=== PATIENT | female | born 1950 | race Caucasian/White ===

== ENCOUNTER 2020-09-25 07:26 | Outpatient (CLI) | payer MEDICARE, OTHER ==
--- NOTE | 2020-09-25 09:02 | MRI ---
MRI LUMBAR SPINE WITHOUT CONTRAST: INDICATION: Lumbar stenosis. Low back pain. COMPARISON: Comparison is made to MRI lumbar spine dated 12/30/2017. FINDINGS: Severe degenerative disk changes at all levels of the lumbar spine again noted and do not appear sign ificantly changed from 2018. Prominent osteophytes are seen from the lumbar vertebrae. There has been progressive of degenerative disk and end plate changes at L1-2 when compared to the pr ior study. The degenerative changes at L2-3, L3-4, L4-5, and L5-S1 appear stable. T12-L1: No significant disk bulge. Facet hypertrophy without central canal stenosis. L1-2: Significant increase in the degenerative disk and end plate changes at this level when compare d to 2018. The broad-based disk bulge is now seen at this level compressing the anterior thecal sac. There is evidence of extruded fragments seen with superior migration paracentrally on the right and best appreciated on the sagittal views. Facet and ligamentous hypertrophy results in mild to modera te central canal stenosis. Bilateral foraminal stenosis. L2-3: Diffuse disk bulge similar to the prior exam. Prominent facet hypertrophy. Mild central wilner l stenosis. Mild foraminal stenosis more severe on the right. L3-4: Posterior listhesis with disk bulge, similar to the prior exam. Prominent facet hypertrophy. Mild central canal stenosis. Bilateral foraminal stenosis secondary to disk bulge and facet hypertr ophy. L4-5: Broad-based bulge appears similar to the prior exam. Prominent facet hypertrophy. Mild centr al canal stenosis. Bilateral foraminal stenosis. L5-S1: Slight posterior listhesis with diffuse disk bulge/protrusion. Facet hypertrophy. Posterior laminectomy change. Mild central canal stenosis. Bilateral foraminal stenosis. IMPRESSION: Severe degenerative disk changes at all levels of the lumbar spine as noted above. Degenerative disk and end plate changes have progressed at L1-2 when compared to the prior study. POS: RODY
== END 2020-09-25 07:27 | disposition home or self-care (01) ==
LOC: MRI 07:26
PROVIDERS: ATTEND Physician Assistant
DX: M48.07 Spinal stenosis, lumbosacral region (principal); M51.36 Other intervertebral disc degeneration, lumbar region; M51.37 Other intervertebral disc degeneration, lumbosacral region
CPT/HCPCS: 72148

== ENCOUNTER 2022-05-30 10:06 | Outpatient (CLI) | payer MEDICARE | END 2022-05-30 10:07 | disposition home or self-care (01) | LOC: MRI 10:06 | PROVIDERS: ATTEND Podiatrist Foot & Ankle Surgery | DX: S90.01XD Contusion of right ankle, subsequent encounter (principal); M76.821 Posterior tibial tendinitis, right leg; M65.9 Synovitis and tenosynovitis, unspecified ==

== ENCOUNTER 2023-02-22 16:52 | Emergency (ER) | payer OTHER, MEDICARE ==
[2023-02-22] MEDS ORDERED: Acetaminophen 500 MG TAB ONE (19:05)
[2023-02-22] MEDS ORDERED: HYDROcodone/Acetaminophen 5/325 mg Tablet ONE (19:28)
== END 2023-02-22 19:37 | disposition home or self-care (01) ==
LOC: ERS 16:52
DX: S49.92XA Unspecified injury of left shoulder and upper arm, initial encounter (principal); E03.9 Hypothyroidism, unspecified; I10 Essential (primary) hypertension; K21.9 Gastro-esophageal reflux disease without esophagitis; V28.5 Motorcycle passenger injured in noncollision transport accident in traffic accident; Z79.899 Other long term (current) drug therapy

== ENCOUNTER 2023-05-28 15:08 | Outpatient (CLI) | payer MEDICARE | END 2023-05-28 15:09 | disposition home or self-care (01) | LOC: BICMAMMO 15:08 | PROVIDERS: ATTEND Family Medicine | DX: Z12.31 Encounter for screening mammogram for malignant neoplasm of breast (principal); M85.852 Other specified disorders of bone density and structure, left thigh | CPT/HCPCS: 77063; 77067; 77080 ==